=== PATIENT | female | born 2000 | race Caucasian/White ===

== ENCOUNTER 2022-02-14 11:15 | Outpatient (CLI) | payer BC, MEDICAID, SELFPAY ==
--- NOTE | 2022-02-14 11:15 | CRLHL7_ITS ---
For Patients: As a result of the Cures Act, medical imaging exams and procedure reports are released immediately into your electronic medical record. You may view this report before your referring provider. If you have questions, please contact your health care provider. LEFT BREAST ULTRASOUND, 02/14/2022 CLINICAL HISTORY: Left breast lump. COMPARISON: None. TECHNIQUE: Real-time ultrasound imaging of LEFT breast with imaging documentation. FINDINGS: Targeted sonogram to the retroareolar LEFT breast performed. In this location, there is a circumscribed fluid collection just deep to the nipple measuring 2.9 x 1.8 x 3.4 cm. There are some internal echoes present along with a thin septation. Increased acoustic enhancement noted. IMPRESSION: Benign retroareolar cyst LEFT breast measuring 2.9 x 1.6 x 3.4 cm representing complicated cyst due to proteinaceous/hemorrhagic debris or galactocele in the setting of breast feeding. RECOMMENDATIONS: Clinical follow-up. If desired, this could be aspirated. Results and recommendations were discussed with the patient at the time of the exam. BI-RADS Category 2: Benign Dictated by Doc Obando MD @ 02/14/2022 11:44:44 AM PT/Dictated by: Doc Obando MD @ 02/14/2022 11:44:00 AM (Electronically Signed)
== END 2022-02-14 11:16 | disposition home or self-care (01) ==
LOC: US 11:18
DX: N63.20 Unspecified lump in the left breast, unspecified quadrant (principal)
CPT/HCPCS: 76642

== ENCOUNTER 2022-07-26 21:49 | Emergency (ER) | payer BC, SELFPAY ==
[2022-07-26 21:55] VITALS: BP 150/89; PULSE 98; RESP 18; TEMP 36.6; O2SAT 98
[2022-07-26 22:53] LABS: Basophils Percent Auto 0.3 % (0.0-3.0); Eosinophils Percent Auto 1.4 % (0.0-7.0); Hematocrit 35.5 % (33.0-51.0); Hemoglobin* 11.4 gm/dL (12.0-16.0); Immature Granulocytes Pct Auto 0.6 %; Lymphocytes Percent Auto 34.7 % (20-44); Mean Corpuscular HGB Conc 32 gm/dL (32-36); Mean Corpuscular Hemoglobin 23 pg (26-34); Mean Corpuscular Volume 72 fL (80-100); Monocytes Percent Auto 7.9 % (0.0-11.0); Neutrophils Percent Auto 55.1 % (42.0-72.0); Platelet Count* 344 K/uL (140-440); RDW Coefficient of Variation % 15.3 % (11.5-15.5); Red Blood Count 4.96 m/uL (4.00-5.20); Slide Review Reflex No; White Blood Count* 12.58 K/uL (4.50-11.00)
[2022-07-26 23:03] VITALS: BP 138/71; PULSE 87; RESP 16; TEMP 36.6; O2SAT 96
--- NOTE | 2022-07-26 23:38 | ED_ITS ---
HPI - GI Bleed General Date Seen: 07/26/22 Chief complaint: GI Bleed Stated complaint: Rectal bleeding Time Seen by Provider: 07/26/22 22:00 Source: patient and family Mode of arrival: ambulatory Limitations: no limitations History of Present Illness HPI Narrative: Patient is a 22-year-old female presents here for rectal bleeding, she has had 4 episodes over the past 4 hours of when she wipes herself there was blood on the tissue or a drop of blood in the toilet. He has no pain associated with this or no pain with bowel movements she has no history of constipation, but has a history of previous hemorrhoids. She called the nurse line and they were worried about the possibility that she has cirrhosis, as there is a family history of cirrhosis, she does not drink alcohol, is on no medications, denies any abdominal pain or other issues. Presents here with her for evaluation. She does have a history of anemia in the past. complaint: blood on toilet paper and blood streaked stool Onset (ago): hour(s) Severity: mild Relieving factors: none Exacerbating factors: none Context: hemorrhoids Associated symptoms: denies other symptoms Treatments Prior to Arrival: none Related Data Home Medications Medication Instructions Recorded Confirmed metformin 850 mg tablet 850 mg PO DAILY 07/26/22 07/26/22 Allergies Allergy/AdvReac Type Severity Reaction Status Date / Time ceftriaxone [From Rocephin] Allergy Intermediate Hives Verified 07/26/22 22:01 Review of Systems Status of ROS: Reports: 10 or more systems reviewed and unremarkable except as noted in History and below PFSH PFSH Social History Smoking Status: Current every day smoker Do you use any of these nicotine containing products: Vaping Products Second hand tobacco smoke exposure: No How often do you have a drink containing alcohol: never AUDIT-C Alcohol total score: 0 Non-prescribed substance use: denies use Exam Narrative: Exam Narrative: Patient is seen in room 3, with nurse present, she is got an elevated BMI, her abdomen is soft there is no guarding, examination shows some old external hemorrhoids, and she has an internal hemorrhoid, with evidence of acute bleeding, endoscopy was used, which confirmed the internal hemorrhoid, with no blood above this. Const: Vital Signs, click to edit/add: Vital Signs - 24 hr 07/26/22 21:55 07/26/22 23:03 Temperature 98 F 98 F Pulse Rate [Pulse Oximeter] 98 87 Respiratory Rate 18 16 Blood Pressure [Ri ght Upper Arm] 150/89 H 138/71 Pulse Oximetry 98 96 Oxygen Delivery Me thod Room Air Room Air Documenting provider has reviewed patient's vital signs: yes Course Vital Signs Vital signs: Initial Vital Signs Temperature 98 F 07/26/22 21:55 Temperature Source Temporal Artery Scan 07/26/22 21:55 Pulse Rate 98 07/26/22 21:55 Respiratory Rate 18 07/26/22 21:55 Blood Pressure 150/89 H 07/26/22 21:55 Blood Pressure Mean 109 07/26/22 21:55 Pulse Oximetry 98 07/26/22 21:55 Oxygen Delivery Method 07/26/22 21:55 Vital Signs Temperature 98 F 07/26/22 21:55 Pulse Rate 98 07/26/22 21:55 Respiratory Rate 18 07/26/22 21:55 Blood Pressure 150/89 H 07/26/22 21:55 Pulse Oximetry 98 07/26/22 21:55 Oxygen Delivery Method 07/26/22 21:55 Temperature 98 F 07/26/22 23:03 Pulse Rate 87 07/26/22 23:03 Respiratory Rate 16 07/26/22 23:03 Blood Pressure 138/71 07/26/22 23:03 Pulse Oximetry 96 07/26/22 23:03 Oxygen Delivery Method 07/26/22 23:03 MDM - GI Bleed MDM Narrative Medical decision making narrative: During this evaluation I considered multiple causes of lower GI bleeding include anal fissure, hemorrhoids both internal external, gastritis, esophageal varices, upper GI hemorrhage, diverticulosis, angiodysplasia, Medical Records Attestation: I reviewed the patient's medical records. Lab Data Attestation: I reviewed the patient's lab results. Labs: Lab Results 07/26/22 Range/Units 22:40 WBC 12.58 H (4.50-11.00) K/uL RBC 4.96 (4.00-5.20) m/uL Hgb 11.4 L (12.0-16.0) gm/dL Hct 35.5 (33.0-51.0) % MCV 72 L (80-100) fL MCH 23 L (26-34) pg MCHC 32 (32-36) gm/dL RDW Coeff of Karie 15.3 (11.5-15.5) % Plt Count 344 (140-440) K/uL Neut % (Auto) 55.1 (42.0-72.0) % Lymph % (Auto) 34.7 (20-44) % Cowley % (Auto) 7.9 (0.0-11.0) % Eos % (Auto) 1.4 (0.0-7.0) % Baso % (Auto) 0.3 (0.0-3.0) % Neut # (Auto) 6.90 (1.7-7.0) K/uL Lymph # (Auto) 4.40 H (0.90-2.90) K/uL Cowley # (Auto) 1.00 H (0.00-0.90) K/UL Eos # (Auto) 0.20 (0.00-0.50) K/uL Baso # (Auto) 0.00 (0.00-0.30) K/uL Discharge Plan Discharge Clinical Impression: Hematochezia, Hemorrhoids Patient Disposition: Home w/ Parent or Adult Condition: Stable Instructions: Hemorrhoids (DC), Rectal Bleeding (ED) Additional Instructions: Home rest stool softeners, Colace 1 tablet morning, 1 tablet evening for the next 10 days should be very helpful, I would not suggest to start with something very strong like MiraLax. Bleeding could be on off but her hemoglobin we checked and was excellent at 11.4. Follow-up with primary care if ongoing signs and symptoms but I think this will resolve itself Prescriptions: No Action metformin 850 mg tablet 850 mg PO DAILY Follow Up/Referrals: Provider,Not a Local [Primary Care Provider] - Stand Alone Forms: My[facility] Info Instructions
== END 2022-07-26 23:12 | disposition home or self-care (01) ==
PROVIDERS: Emergency Provider Family Medicine
DX: K92.1 Melena (principal); K64.8 Other hemorrhoids
CPT/HCPCS: 36415; 85025; 99283; 99284

== ENCOUNTER 2022-11-12 17:41 | Emergency (ER) | payer BC, SELFPAY ==
[2022-11-12 17:50] VITALS: BP 127/84; PULSE 124; RESP 26; TEMP 36.7; O2SAT 97; BMI 47.9
[2022-11-12] MEDS: KETOROLAC 30 MG/ML inj IVP (18:20)
[2022-11-12] MEDS: 0.9 % SODIUM CHLORIDE 1000 ml 1,000 ML IV ×2 (18:23→18:53)
[2022-11-12 18:30] LABS: Lactate* 0.8 mmol/L (0.5-1.9)
[2022-11-12 18:36] LABS: Basophils Percent Auto 0.2 % (0.0-3.0); Eosinophils Percent Auto 0.4 % (0.0-7.0); Hematocrit 35.2 % (33.0-51.0); Hemoglobin* 11.4 gm/dL (12.0-16.0); Immature Granulocytes Pct Auto 0.2 %; Lymphocytes Percent Auto 10.1 % (20-44); Mean Corpuscular HGB Conc 32 gm/dL (32-36); Mean Corpuscular Hemoglobin 23 pg (26-34); Mean Corpuscular Volume 72 fL (80-100); Monocytes Percent Auto 8.7 % (0.0-11.0); Neutrophils Percent Auto 80.4 % (42.0-72.0); Platelet Count* 319 K/uL (140-440); RDW Coefficient of Variation % 15.7 % (11.5-15.5); Red Blood Count 4.92 m/uL (4.00-5.20); White Blood Count* 17.41 K/uL (4.50-11.00)
[2022-11-12 18:39] LABS: Slide Review Reflex No
--- NOTE | 2022-11-12 18:39 | ED_ITS ---
HPI - General Adult General Chief complaint: Sore Throat Stated complaint: swollen throat, fever Time Seen by Provider: 11/12/22 17:46 Source: patient Mode of arrival: ambulatory Limitations: no limitations History of Present Illness HPI narrative: 22-year-old female coming in today complaining of sore throat difficulty swallowing. Patient was diagnosed with strep pharyngitis and started on antibiotics yesterday. She states that she has been able to eat and couple of days now. Had episode of vomiting this morning. She feels exhausted, dehydrated. Related Data Previous Rx's Medication Instructions Recorded amoxicillin 500 mg capsule 1,000 mg (2 x 500 mg) PO QDAY #20 11/11/22 caps Allergies Allergy/AdvReac Type Severity Reaction Status Date / Time ceftriaxone [From Rocephin] Allergy Intermediate Hives Verified 11/11/22 09:27 nickel Allergy Verified 11/12/22 17:50 Review of Systems Status of ROS: Reports: 10 or more systems reviewed and unremarkable except as noted in History and below [facility] Medical History Gestational diabetes ?O24.419 - Gestational diabetes mellitus in , unspecified control (ICD-10) Social History Smoking Status: Never smoker Do you use any of these nicotine containing products: Vaping Products Second hand tobacco smoke exposure: No How often do you have a drink containing alcohol: never AUDIT-C Alcohol total score: 0 Non-prescribed substance use: denies use Exam Narrative: Exam Narrative: Overweight, well-developed patient , tearful. Alert and oriented x3. Answers questions appropriately. Thoughts are goal oriented and rational. No tangential or magical thinking noted. Patient speaks in full sentences without needing to catch her breath. Voice is slightly muffled, she speaks very softly. HEENT: Normocephalic atraumatic. Pupils are equally round reactive to light. Extraocular muscles are intact. Conjunctivae are moist without any icterus noted. Moist mucous membranes. Posterior pharynx shows bilateral tonsillar swelling. Soft palate is intact and is not protruding forward. She does have bilateral exudate present. Neck is soft without any significant lymphadenopathy or thyromegaly. No masses are appreciated. Cardiovascular: Heart is regular rate and rhythm S1 and S2 are present without any murmurs. Lungs: Clear to auscultation bilaterally no wheezes rhonchi or rales are appreciated. Patient takes deep breaths without any discomfort. Skin: Well perfused without any obvious rashes. Const: Vital Signs, click to edit/add: Vital Signs - 24 hr 11/12/22 17:50 11/12/22 20:00 Temperature 98.1 F 97.5 F L Pulse Rate [Right Pulse Oximeter] 124 H 97 Respiratory Rate 26 H 12 Blood Pressure [Ri ght Upper Arm] 127/84 127/79 Pulse Oximetry 97 96 Oxygen Delivery Me thod Room Air Room Air Course Course Hospital Course: IV was started patient received 2 L of normal saline. She also received IV Zofran and Toradol which did help her symptoms some, however the pain continued. Therefore she was given IV Decadron and oral hydrocodone and she did feel significantly better. She was tachycardic upon presentation and after fluid hydration pulse backed down to 97 from 124. White cell count was elevated with elevated neutrophils, normal lactate. Vital Signs Vital signs: Initial Vital Signs Temperature 98.1 F 11/12/22 17:50 Temperature Source Temporal Artery Scan 11/12/22 17:50 Pulse Rate 124 H 11/12/22 17:50 Respiratory Rate 26 H 11/12/22 17:50 Blood Pressure 127/84 11/12/22 17:50 Blood Pressure Mean 98 11/12/22 17:50 Blood Pressure Position Sitting 11/12/22 17:50 Pulse Oximetry 97 11/12/22 17:50 Oxygen Delivery Method Room Air 11/12/22 17:50 Vital Signs Temperature 98.1 F 11/12/22 17:50 Pulse Rate 124 H 11/12/22 17:50 Respiratory Rate 26 H 11/12/22 17:50 Blood Pressure 127/84 11/12/22 17:50 Pulse Oximetry 97 11/12/22 17:50 Oxygen Delivery Method Room Air 11/12/22 17:50 Temperature 97.5 F L 11/12/22 20:00 Pulse Rate 97 11/12/22 20:00 Respiratory Rate 12 11/12/22 20:00 Blood Pressure 127/79 11/12/22 20:00 Pulse Oximetry 96 11/12/22 20:00 Oxygen Delivery Method Room Air 11/12/22 20:00 Medical Decision Making MDM Narrative Medical decision making narrative: 22-year-old female strep pharyngitis and dehydration. Treated per above. Patient will continue antibiotic treatment. She did not feel that she needed pain medications to take home the doing. We discussed slow and continuous hydration throughout the day. Discussed the possibility of a retropharyngeal or peritonsillar abscess, however patient has no trismus, no fevers or chills and no protrusion of the tonsils. We discussed returning if she is not getting better or certainly if she is getting worse. Patient was in agreement and had no other questions. Medical Records Medical records reviewed: Yes I reviewed the patient's medical records Lab Data Lab results reviewed: Yes I reviewed the patient's lab results Labs: Lab Results 11/12/22 Range/Units 18:15 WBC 17.41 H (4.50-11.00) K/uL RBC 4.92 (4.00-5.20) m/uL Hgb 11.4 L (12.0-16.0) gm/dL Hct 35.2 (33.0-51.0) % MCV 72 L (80-100) fL MCH 23 L (26-34) pg MCHC 32 (32-36) gm/dL RDW Coeff of Karie 15.7 H (11.5-15.5) % Plt Count 319 (140-440) K/uL Neut % (Auto) 80.4 H (42.0-72.0) % Lymph % (Auto) 10.1 L (20-44) % Leslie % (Auto) 8.7 (0.0-11.0) % Eos % (Auto) 0.4 (0.0-7.0) % Baso % (Auto) 0.2 (0.0-3.0) % Neut # (Auto) 14.00 H (1.7-7.0) K/uL Lymph # (Auto) 1.80 (0.90-2.90) K/uL Leslie # (Auto) 1.50 H (0.00-0.90) K/UL Eos # (Auto) 0.10 (0.00-0.50) K/uL Baso # (Auto) 0.00 (0.00-0.30) K/uL Lactate 0.8 (0.5-1.9) mmol/L Discharge Plan Discharge Clinical Impression: Strep pharyngitis, Dehydration Patient Disposition: Home, Self-Care Condition: Improved Additional Instructions: Make sure to drink small amounts of fluid very frequently throughout the day. Okay to take ibuprofen and Tylenol as needed for discomfort. If you are getting worse, return to the ER. Prescriptions: No Action amoxicillin 500 mg capsule 1,000 mg PO QDAY Qty: 20 0RF Follow Up/Referrals: Luisa Avila DO [Primary Care Provider] - Stand Alone Forms: [employer] Info Instructions
[2022-11-12] MEDS: dexAMETHasone 4 MG/ML VIAL 8 MG IV (19:46)
[2022-11-12] MEDS: ONDANSETRON 2 MG/ML inj 4 MG IVP (19:46)
[2022-11-12 20:00] VITALS: BP 127/79; PULSE 97; RESP 12; TEMP 36.4; O2SAT 96
[2022-11-12] MEDS: HYDROCODONE-ACETAMIN 5-325 MG 1 TAB PO (20:08)
--- NOTE | 2022-11-12 20:14 | ED.NURSE ---
Report given to SCOTT Patel.
== END 2022-11-12 20:26 | disposition home or self-care (01) ==
PROVIDERS: Emergency Provider Family Medicine; PCP Family Medicine
DX: J02.0 Streptococcal pharyngitis (principal); E86.0 Dehydration
CPT/HCPCS: 36415; 83605; 85025; 96361; 96374; 96375; 99284; A9270; J1100; J1885; J2405; J7030